=== PATIENT | female | born 1930 | race Hispanic/Latino ===

== ENCOUNTER 2016-10-19 15:08 | Inpatient (IN) | payer MEDICARE, OTHER ==
[~2016-10-19] VITALS: Ht 149.9 cm; Wt 76.2 kg
[~2016-10-19 15:08] MED LIST: AMLO-321 PO; CARV12.52 PO; LOSA1TAB69 PO
[2016-10-19 15:29] VITALS: BP 136/55; PULSE 67; RESP 20; O2SAT 92
[2016-10-19 16:14] VITALS: BP 128/59; PULSE 68; RESP 22; O2SAT 94
--- NOTE | 2016-10-19 16:23 | ED.REPORT ---
HPI-General Illness Date of Service October 19, 2016 ED Provider: Amish Rossi MD Patient is an 86 year old female with a history of CAD, malignant hypertension, hyperlipidemia, hypothyroidism, renal artery stenosis and diastolic heart failure who presents to the ED with a fever that began 2 days ago. Associated symptoms include weakness, non productive cough, confusion, decreased appetite and fatigue. Son reports recent stressors in addition to symptoms. He denies any recent head injury or headache. Nursing Notes Stated Complaint: FEVER/COUGH Chief Complaint: FLU/Cold Symptoms Nursing Notes Reviewed: Yes Allergies: Coded Allergies: No Known Allergies (Verified , 08/24/15) Scheduled Amlodipine/Atorvastatin 10-10 mg (Amlodipine/Atorvastatin 10-10 mg) 1 Each Tablet 1 TABLET PO BID Carvedilol (Carvedilol) 12.5 Mg Tablet 12.5 MG PO BID Losartan/HCTZ 50-12.5 mg (Losartan/HCTZ 50-12.5 mg) 1 Each Tablet 1 TABLET PO BID General Time Seen by MD: 15:54 Chief Complaint Fever Hx Obtained From: Patient Arrived By: Walk-in Sudden in Onset?: No Onset Occurred: 2 days ago Symptom Duration: Since onset Associated with: Reports: Cough, Fever, Weakness Pertinent Negative: Pt denies other symptoms Recent Healthcare: No recent doctor visit, No recent hospitalization Past Medical History Past Medical History 1.) Coronary Artery Disease 2.) Renal Artery Stenosis 3.) Malignant Hypertension 4.) Diastolic Heart Failure 5.) Hyperplipidemia 6.) Stenosis of the Inferior Mesenteric Artery 7.) Hypothyroidism 8.) Depression Past Surgical History Reports: Cholecystectomy Family History noncontributory Smoking History Unknown if Ever Smoker Social History Drug Use: Denies drug use Other Social History: Good social support, Lives alone, Local resident Ambulatory Status Independent Review of Systems Decreased appetite Full Review of Systems Constitutional: Reports: Chills, Fever, Weakness - generalized Respiratory: Reports: Non-productive cough Neurologic: Reports: Confusion Complete sys rev & neg: except as marked. Physical Exam Vital Signs Vital Signs Date Time Temp Pulse Resp B/P Pulse Ox O2 Delivery O2 Flow Rate FiO2 10/19/16 18:14 37.1 10/19/16 17:28 74 20 139/51 94 Nasal Cannula 2 10/19/16 16:14 36.9 68 22 128/59 94 Room Air 10/19/16 15:29 37.2 67 20 136/55 92 Room Air Initial VS: Reviewed Neck: Supple, Non-tender, Full range of motion Extremities: Vascular intact, Neuro intact, No swelling (No calf swelling) , No tenderness (No calf tenderness) Skin: Warm, Dry, No cyanosis Neurologic: Alert, Oriented, Nonfocal Psychiatric: Mood/affect normal, Behavior normal, Normal thought content General/Constitutional: Awake, Alert, No acute distress Head / Eyes: Atraumatic, Normocephalic, PERRL Respiratory / Chest: Atraumatic, No respiratory distress RESPIRATORY: Crackles in the left base of the lung Cardiovascular: Heart rate NL, Regular rhythm, Heart sounds NL, No gallop, No murmurs, No rubs, Peripheral circulation NL, Pulses = bilaterally Abdomen: Atraumatic, Soft, Non-tender, BS normoactive Interpretation & Diagnostics Lab Results Interpretation Result Diagram: 10/19/16 1650 10/19/16 1650 Test 10/19/16 16:21 10/19/16 16:50 10/19/16 17:15 Urine Color Yellow (YELLOW) Urine Appearance Clear (CLEAR,HAZY) Urine pH 6.5 (5.0-8.0) Urine Specific Blanchard 1.010 (1.003-1.035) Urine Protein Negativemg/dL (NEG,TRACE) Urine Glucose (UA) Negativemg/dL (NEGATIVE) Urine Ketones Negativemg/dL (NEGATIVE) Urine Occult Blood Negative (NEGATIVE) Urine Nitrite Negative (NEGATIVE) Urine Bilirubin Negative (NEGATIVE) Urine Urobilinogen 2.0mg/dL (NORMAL) Urine Leukocyte Esterase Negative (NEGATIVE) Urine RBC 0-2/hpf (0-2) Urine WBC 0-5/hpf (0-5) Urine Epithelial Cells Moderate/hpf (NONE-MOD) Urine Crystals None seen (NONE SEEN) Urine Bacteria Few/hpf (NONE-FEW) Urine Hyaline Casts None/lpf (NONE) Urine Granular Casts None seen (NONE SEEN) Urine Waxy Casts None seen (NONE SEEN) Urine Red Blood Cell Casts None seen (NONE SEEN) Urine White Blood Cell Casts None seen (NONE SEEN) Urine Mucus None seen (None Seen) Urine Trichomonas None seen (NONE SEEN) Urine Yeast None (NONE SEEN) Urinalysis Comment None Urine Culture Reflexed Not indicated White Blood Count 8.0th/mm3 (3.8-10.1) Red Blood Count 4.21mil/mm3 (3.90-5.20) Hemoglobin 11.8g/dL (12.0-15.6) Hematocrit 35.4% (35.0-46.0) Mean Corpuscular Volume 84.1fL (81-100) Mean Corpuscular Hemoglobin 28.0pg (27.0-35.0) Mean Corpuscular Hemoglobin Concent 33.3% (32.0-37.0) Red Cell Distribution Width 13.3% (12.3-15.4) Platelet Count 198bil/L (150-400) Neutrophils (%) (Auto) 70.8% (40-74) Lymphocytes (%) (Auto) 18.0% (14-46) Monocytes (%) (Auto) 9.2% (4-12) Eosinophils (%) (Auto) 1.6% (0-5) Basophils (%) (Auto) 0.2% (0-3) Sodium Level 138mEq/L (134-144) Potassium Level 3.5mEq/L (3.5-5.2) Chloride Level 97mEq/L (97-108) Carbon Dioxide Level 29mmol/L (18-29) Blood Urea Nitrogen 16mg/dL (8-27) Creatinine 0.72mg/dL (0.57-1.00) Estimat Glomerular Filtration Rate 110mL/min (>59) Glucose Level 125mg/dL (60-99) Calcium Level 9.5mg/dL (8.5-10.1) Magnesium Level 2.2mg/dL (1.6-2.6) Total Bilirubin 0.7mg/dL (0.0-1.2) Aspartate Amino Transf (AST/SGOT) 25U/L (0-50) Alanine Aminotransferase (ALT/SGPT) 20U/L (0-32) Alkaline Phosphatase 99U/L (25-165) Pro-B-Type Natriuretic Peptide 304.7pg/mL (0-738) Total Protein 7.2g/dL (6.4-8.4) Albumin 3.7g/dL (3.4-5.0) Procalcitonin 0.09ng/mL (0.00-0.08) Lactic Acid Level 0.7mmol/L (0.4-2.0) ECG Interpretation ECG Interpretation: Sinus rhythm at [address] elevation Borderline T wave-abnormalities in AVL Inferior Q waves When compared to 10/19/16- no change Time: 16:37 Interpreted by: ED physician X-Ray Chest Interpretation Chest Xray Interpretation: IMPRESSION: Focal opacity within the left costophrenic angle presumably pneumonia although recommend short interval radiographic followup after treatment to exclude mass lesion/neoplasm. If this persists, a noncontrast CT chest would be recommended. Diffuse interstitial disease. Dictated by: Jonas Acevedo M.D. on 10/19/2016 at 16:49 Interpretation / Wet Read by: Interpret - Radiologist Re-Eval/Medical Decision Med Decision/Clinical Course Patient is an 86 year old female with a history of CAD, malignant hypertension, hyperlipidemia, hypothyroidism, renal artery stenosis and diastolic heart failure who presents to the ED with a fever that began 2 days ago. Associated symptoms include weakness, non productive cough, confusion, decreased appetite and fatigue. Son reports recent stressors in addition to symptoms. He denies any recent head injury or headache. Here in the emergency department the patient is afebrile with stable vital signs and examination as above. Of note the patient has oxygen saturation in the 80s on room air improving to the high 90s on 2 L by nasal cannula. EKG Sinus rhythm at [address] elevation Borderline T wave-abnormalities in AVL Inferior Q waves When compared to 10/19/16- no change IMPRESSION: Focal opacity within the left costophrenic angle presumably pneumonia although recommend short interval radiographic followup after treatment to exclude mass lesion/neoplasm. If this persists, a noncontrast CT chest would be recommended. Diffuse interstitial disease. LABS CBC unremarkable - no leukocytosis CMP unremarkable Lactic acid = 0.7 UA - No sings of UTI Patient started on ceftriaxone and azithromycin for community-acquired pneumonia. Given patient's advanced age, comorbidities and hypoxia she will be admitted to the hospitalist service for further management. Report called and patient transferred in stable condition. Time of Eval: 18:21 Re-Evaluation/Progress Note: Son is informed of the plan to admit following X-ray results. All questions are addressed. He understands and agrees with the intended treatment plan to admit. Consultation : Referral / Consult Name: Ross Camacho MD Consulted With: Hospitalist Call Returned at: 19:09 Furnace Clerk: Will see patient, Agrees with eval, Agrees with plan, Accepts admit Counseled Regarding: Diagnosis, Lab results, Need for admission Discharge & Departure Primary Impression: Pneumonia Pneumonia type: due to unspecified organism Laterality: left Lung location : lower lobe of lung Qualified Code: J18.1 - Lobar pneumonia, unspecified organism Additional Impressions: Hypoxia Respiratory distress History of coronary artery disease Disposition: ADMITTED TO HOSPITAL Discharge Condition All VS Reviewed: Yes Condition: Stable Referrals: Mark Ramirez MD (PCP) Crit Care Except Billable Proc Time Spent: 75-104 minutes Services Performed: Patient management by me, Time spent at bedside, Reviewing test results, Reviewing imaging, Discussing patient care, Documentation in record, Time with fam/surrogate Scribe Attestation Portions of this note were transcribed by Carmina Hall. I, Dr. Rossi personally performed the history, physical exam and medical decision-making; I reviewed and confirmed the accuracy of the information in the transcribed note. Signed by: Horacio Montanez, 10/19/16 [id number]. copies to: Mark Ramirez MD, Beck O MD October 19, 2016 16:23 CARMINA HALL October 19, 2016 16:39
[2016-10-19 16:37] LABS: APPEARANCE,URINE CLEAR (CLEAR,HAZY); COLOR,URINE YELLOW (YELLOW); OCCULT BLOOD,URINE NEGATIVE (NEGATIVE); PH,URINE 6.5 (5.0-8.0)
--- NOTE | 2016-10-19 16:51 | DRSVH ---
PROCEDURE: X-RAY CHEST ONE VIEW, PORTABLE ([id number]) INDICATIONS: SHORT OF BREATH TECHNIQUE: One view of the chest was acquired. COMPARISON: [facility], CR, XR CHEST 1VW (PORTABLE), 08/24/2015, 11:12. FINDINGS: Surgical changes and devices: None. Lungs and pleura: No pleural effusions or pneumothorax. Diffuse interstitial opacities are present. Focal consolidation seen the left costophrenic angle. Mediastinum: Mediastinal contours appear normal. Heart size is normal. Bones and chest wall: No suspicious bony lesions. Overlying soft tissues appear unremarkable. Mult ilevel discogenic changes IMPRESSION: Focal opacity within the left costophrenic angle presumably pneumonia although recommend short interv al radiographic followup after treatment to exclude mass lesion/neoplasm. If this persists, a noncont rast CT chest would be recommended. Diffuse interstitial disease. Dictated by: Jonas Acevedo M.D. on 10/19/2016 at 16:49 Approved by: Jonas Acevedo M.D. on 10/19/2016 at 16:50
[2016-10-19 17:05] LABS: BASOPHILS % (AUTO) 0.2 % (0-3); EOSINOPHILS % (AUTO) 1.6 % (0-5); MONOCYTES % (AUTO) 9.2 % (4-12); Mean Corpuscular Volume 84.1 fL (81-100); NEUTROPHILS % (AUTO) 70.8 % (40-74); Platelet Count 198 bil/L (150-400)
[2016-10-19 17:28] VITALS: BP 139/51; PULSE 74; RESP 20; O2SAT 94
[2016-10-19 17:35] LABS: Magnesium 2.2 mg/dL (1.6-2.6)
[2016-10-19] MEDS ORDERED: Alum-Mag Hydrox-Simeth 30 mL Suspension PO PRN ×2 (18:30→19:35)
[2016-10-19] MEDS ORDERED: cefTRIAXone Inj 2,000 MG in Dextrose 5% Minibag Plus 50 ML IV ONE (18:30)
[2016-10-19] MEDS ORDERED: Ondansetron 2 mg/mL 2 mL Inj IVPUSH PRN (18:30)
[2016-10-19] MEDS ORDERED: Azithromycin Inj 500 MG in Dextrose 5% w/Vial Mate 250 ML IV ONE (18:30)
[2016-10-19] MEDS ORDERED: Polyethylene Glycol (PEG) 17 Gm Powder PO PRN (19:35)
[2016-10-19 20:49] VITALS: BP 145/69; PULSE 76; RESP 18; O2SAT 96
--- NOTE | 2016-10-19 21:13 | PCM.HPMED ---
Subjective Date of Service October 19, 2016 Primary Provider: Admitting Physician: Primary Care Physician: Mark Ramirez MD Attending Physician: Admit Status: From the Emergency Department, Remote Telemetry Chief Complaint: fever and cough History of Present Illness: Patient is a Venezuelan speaking 86 year old female with a history of CAD, malignant hypertension, hyperlipidemia, hypothyroidism, renal artery stenosis and diastolic heart failure who presents to the ED with a fever that began 2 days ago. Associated symptoms include generalized malaise, headache, non productive cough, confusion, decreased appetite and fatigue. Denies any sick contacts, or recent hospitalizations. CXR showed possible pneumonia. In the ED vitals temperature 37.2, pulse 67 respiratory 20 blood pressure 136/ 55 pulse ox 92% on room air. Labs WBC 8.0, glucose 125 otherwise normal. Lactic acid 0.7. UA negative ECC was no acute changes. Chest x-ray showed "Focal opacity within the left costophrenic angle presumably pneumonia although recommend short interval radiographic followup after treatment to exclude mass lesion/neoplasm. Diffuse interstitial disease." Patient admitted to the hospital for further treatment and management. PCP: Mark Ramirez MD Review of Systems: Constitutional: Chills, Fever, Weakness - generalized, headaches and lack of appetite Respiratory: Cough, Non-productive cough Neurologic: Mild Confusion Complete sys rev & neg: except as marked. A comprehensive review of systems has been conducted with the patient and found to be negative except what is mentioned as above or in the HPI. Allergies Coded Allergies: No Known Allergies (Verified , 08/24/15) Home Medications Amlodipine/Atorvastatin 10-10 mg (Amlodipine/Atorvastatin 10-10 mg) 1 Each Tablet 1 TABLET PO BID Carvedilol (Carvedilol) 12.5 Mg Tablet 12.5 MG PO BID Losartan/HCTZ 50-12.5 mg (Losartan/HCTZ 50-12.5 mg) 1 Each Tablet 1 TABLET PO BID PMH 1.) Coronary Artery Disease 2.) Renal Artery Stenosis 3.) Malignant Hypertension 4.) Diastolic Heart Failure 5.) Hyperplipidemia 6.) Stenosis of the Inferior Mesenteric Artery 7.) Hypothyroidism 8.) Depression . Surgical History Cholecystectomy Family History Patient not sure of any health issues with parents. Social History Hx Alcohol Use: No Hx Substance Use: No Hx Tobacco Use: No Smoking Status: Never Smoker Living Arrangement: Alone (but currently with son due to not feeling well, passed several years ago) Exam Vital Signs Vital Sign - Last Date Time Temp Pulse Resp B/P Pulse Ox O2 Delivery O2 Flow Rate FiO2 10/19/16 18:14 37.1 10/19/16 17:28 74 20 139/51 94 Nasal Cannula 2 Exam General/Constitutional: Awake, Alert, No acute distress HEENT: Atraumatic, Normocephalic, PERRL, sclerae anicteric, moist mucous membranes Neck: Supple, Non-tender, Full range of motion, no lymphadenopathy Respiratory / Chest: Bibasilar crackles, diffuse expiratory wheezes. No respiratory distress Cardiovascular: Heart rate NL, Regular rhythm, Heart sounds NL, No gallop, No murmurs, No rubs, radial and dorsal pedis pulses normal, equal and intact Abdomen: Atraumatic, Soft, Non-tender, BS normoactive Extremities: Vascular intact, Neuro intact, No edema or tenderness Skin: Warm, Dry, No cyanosis Neurologic: Alert, Oriented, Nonfocal Psychiatric: Mood/affect normal, Behavior normal, Normal thought content Lab and Diagnostics Result Diagram: 10/19/16 1650 10/19/16 1650 X-Rays, CTs and MRIs Chest Xray Interpretation: IMPRESSION: Focal opacity within the left costophrenic angle presumably pneumonia although recommend short interval radiographic followup after treatment to exclude mass lesion/neoplasm. If this persists, a noncontrast CT chest would be recommended. Diffuse interstitial disease. Dictated by: Jonas Acevedo M.D. on 10/19/2016 at 16:49 Interpretation / Wet Read by: Interpret - Radiologist 12-lead ECG ECG Interpretation: Sinus rhythm at [address] elevation Borderline T wave-abnormalities in AVL Inferior Q waves When compared to 10/19/16- no change Time: 16:37 Interpreted by: ED physician Assessment & Plan Patient is a Venezuelan speaking 86 year old female with a history of CAD, malignant hypertension, hyperlipidemia, hypothyroidism, renal artery stenosis and diastolic heart failure who presents to the ED with a fever that began 2 days ago. Associated symptoms include weakness, non productive cough, confusion , decreased appetite and fatigue. Diagnosed to have pneumonia and started on antibiotics. Community-acquired pneumonia this examination. Acute. - CXR showed "Focal opacity within the left costophrenic angle presumably pneumonia although recommend short interval radiographic followup after treatment to exclude mass lesion/neoplasm. - CURB 65 score of 3, severe risk group with 14% with 30-day mortality - started on ceftriaxone and azithromycin, to be continued - IVF - Viral PCR panel, sputum Cx, procalcitonin pending - Urine legionella and strep pneumo pending Chronic conditions: Coronary Artery Disease - on telemetry - Continue home dose carvedilol Malignant Hypertension secondary to renal artery stenosis - continue home medication; losartan/HCTZ, amlodipine/atorvastatin Diastolic Heart Failure - Strict I/Os with standing daily weights Hyperplipidemia - continue home medication atorvastatin Stenosis of the Inferior Mesenteric Artery Hypothyroidism - patient on medication for this Depression Acetaminophen-fever/headache/mild/moderate pain Antiemetics, as needed Bowel regimen, as needed. Patient status: Patient was admitted under inpatient status with expected length of stay greater than two midnights due to severity of presenting symptoms , risk of adverse event, and complexity of treatment plan. Pain Evaluation: Adequate Pain Control GI Prophylaxis: Not indicated VTE Prophylaxis: Sub-Q Heparin (Unfractionated) Resuscitation Status: CPR: Attempt Resuscitation Attending Statement The patient was seen and examined together with Dr. Roa on 10/19 and I agree with the history, exam and plan as outlined in the note above. copies to: Mark Ramirez MD, Fumiko O DO October 19, 2016 19:31 Ross Camacho MD October 20, 2016 04:23 Emi Roa DO October 19, 2016 19:31 Ross Camacho MD October 20, 2016 04:23
[2016-10-19] MEDS: 0.9% Sodium Chloride 1,000 ML IV SCH (22:04)
[2016-10-19] MEDS ORDERED: AMLODIPINE PO SCH (22:50)
[2016-10-19] MEDS ORDERED: ATORVASTATIN PO SCH (22:50)
[2016-10-19 22:59] VITALS: PULSE 61
[2016-10-20] VITALS (9 sets, daily range): BP systolic 100–130; BP diastolic 52–58; PULSE 60–69; RESP 14–20; O2SAT 93–99
[2016-10-20] MEDS: Heparin 5,000 Unit/mL Inj SUBQ SCH ×3 (00:44→16:45)
--- NOTE | 2016-10-20 02:01 | NUR ---
Arrival to unit Patient arrived to the floor at 2030 from the ED via gurney. Was able to scoot self over to hospital bed with assist. Patient denies pain, or SOB. Slight expiratory wheezes are heard. 3L O2 via NC maintains sats @ 95%. Patient was able to use BSC with 1 person assist well. NS is running at 100cc/hr with int. abx. Tele applied, and tech reports SR 61 with 1st degree AV block. Patient is on droplet precautions. Unable to complete med rec at this time. Family members are to bring in med list in the morning so drugs, and doses can be verified; night hospitalist notified and aware. Bed is in locked/low position and call light is within reach. Will continue to monitor and continue Q1 hour checks.
[2016-10-20] MEDS: 0.9% Sodium Chloride 1,000 ML IV SCH ×3 (05:31→23:29)
--- NOTE | 2016-10-20 06:38 | PCM.PNMED ---
Subjective Date of Service October 20, 2016 Subjective No acute events overnight, denies cp or worsening sob. cont on supplemental oxygen, appreciate nursing assisting in med rec today after family brings in medications Exam Vital Signs Vital Sign - Last Date Time Temp Pulse Resp B/P Pulse Ox O2 Delivery O2 Flow Rate FiO2 10/20/16 06:17 62 10/20/16 05:52 36.7 18 100/58 99 Nasal Cannula 3.00 Intake and Output 10/19/16 10/19/16 10/20/16 Cumulative From/Thru 15:00 23:00 07:00 10/19/16 15:29 - 10/20/16 06:09 Intake Total 1364 ml 1364 ml Output Total 300 ml 300 ml Balance 1064 ml 1064 ml Intake Oral 200 ml 200 ml IV Total 1164 ml 1164 ml Output Urine Total 300 ml 300 ml # Bowel Movements 1 1 Exam General/Constitutional: Awake, Alert, No acute distress HEENT: Atraumatic, Normocephalic, PERRL, sclerae anicteric, moist mucous membranes Neck: Supple, Non-tender, Full range of motion, no lymphadenopathy Respiratory / Chest: Bibasilar crackles, diffuse expiratory wheezes. No respiratory distress Cardiovascular: Heart rate NL, Regular rhythm, Heart sounds NL, No gallop, No murmurs, No rubs, radial and dorsal pedis pulses normal, equal and intact Abdomen: Atraumatic, Soft, Non-tender, BS normoactive Extremities: Vascular intact, Neuro intact, No edema or tenderness Skin: Warm, Dry, No cyanosis Neurologic: Alert, Oriented, Nonfocal Psychiatric: Mood/affect normal, Behavior normal, Normal thought content IVs and Medications Medications Reviewed: Medications were reviewed in detail Lab and Diagnostics Result Diagram: 10/19/16164910/19/161649 X-Rays, CTs and MRIs Chest Xray Interpretation: IMPRESSION: Focal opacity within the left costophrenic angle presumably pneumonia although recommend short interval radiographic followup after treatment to exclude mass lesion/neoplasm. If this persists, a noncontrast CT chest would be recommended. Diffuse interstitial disease. Dictated by: Jonas Acevedo M.D. on 10/19/2016 at 16:49 Interpretation / Wet Read by: Interpret - Radiologist 12-lead ECG ECG Interpretation: Sinus rhythm at [address] elevation Borderline T wave-abnormalities in AVL Inferior Q waves When compared to 10/19/16- no change Time: 16:37 Interpreted by: ED physician Assessment & Plan Vietnamese speaking 86 year old female with a history of CAD, malignant hypertension, hyperlipidemia, hypothyroidism, renal artery stenosis and diastolic heart failure who presents to the ED with a fever that began 2 days ago. Associated symptoms include weakness, non productive cough, confusion, decreased appetite and fatigue. Diagnosed to have pneumonia and started on antibiotics. Community-acquired pneumonia this examination. Acute. - CXR showed "Focal opacity within the left costophrenic angle presumably pneumonia although recommend short interval radiographic followup after treatment to exclude mass lesion/neoplasm. - CURB 65 score of 3, severe risk group with 14% with 30-day mortality - cont ceftriaxone and azithromycin, start: 10/19 - IVF, dc later today if PO intake adequate - Viral PCR panel, sputum Cx, procalcitonin pending - Urine legionella and strep pneumo pending Chronic conditions: Coronary Artery Disease - on telemetry - Continue home dose carvedilol Malignant Hypertension secondary to renal artery stenosis - continue home medication; losartan/HCTZ, amlodipine/atorvastatin Diastolic Heart Failure - Strict I/Os with standing daily weights Hyperplipidemia - continue home medication atorvastatin Stenosis of the Inferior Mesenteric Artery Hypothyroidism - patient on medication for this Depression Acetaminophen-fever/headache/mild/moderate pain Antiemetics, as needed Bowel regimen, as needed. Patient status: Patient was admitted under inpatient status with expected length of stay greater than two midnights due to severity of presenting symptoms , risk of adverse event, and complexity of treatment plan. Pain Evaluation: Adequate Pain Control GI Prophylaxis: Not indicated VTE Prophylaxis: Sub-Q Heparin (Unfractionated) VTE Mechanical Devices: Intermittant Pneumatic CD Resuscitation Status: CPR: Attempt Resuscitation Time spent 30 minutes spent with keri and Joseph Pardo DO October 20, 2016 06:38
[2016-10-20] MEDS ORDERED: HCTZ PO SCH (08:30)
[2016-10-20] MEDS ORDERED: LOSARTAN PO SCH (08:30)
[2016-10-20] MEDS ORDERED: AMLO10TA3 PO (08:54)
[2016-10-20] MEDS: Azithromycin Inj 500 MG in Dextrose 5% w/Vial Mate 250 ML IV SCH (09:01)
--- NOTE | 2016-10-20 09:05 | NUR ---
Med Rec Med Rec was completed with patient's home medication bottles brought in by son. GARCIA notified in person.
--- NOTE | 2016-10-20 10:42 | DRSVH ---
PROCEDURE: X-RAY CHEST ONE VIEW, PORTABLE ([id number]) INDICATIONS: PNEUMONIA TECHNIQUE: One view of the chest was acquired. COMPARISON: [facility], CR, XR CHEST 2VW, 05/15/2015, 1:31. [facility], CR, XR CHEST 1VW (PORTABLE), 10/19/2016, 16:22. FINDINGS: Surgical changes and devices: None. Lungs and pleura: No pleural effusions or pneumothorax. Lung lungs are low. Increasing opacificati on at the left lung base. Mediastinum: Mediastinal contours appear normal. Heart size is normal. Mitral annular calcificatio n present. Bones and chest wall: No suspicious bony lesions. Overlying soft tissues appear unremarkable. IMPRESSION: Increasing opacification at the left lung base consistent with worsening pneumonia or ate lectasis. Dictated by: Roger Vidal RRA Interpreted: Leticia Sarabia MD on 10/20/2016 at 10:41 Transcribed by: MYA on 10/20/2016 at 10:42 Approved by: Leticia Sarabia MD, PhD on 10/20/2016 at 11:40
[2016-10-20] MEDS: Albuterol-Ipratropium 3 mL Inhalation Solution NEB SCH ×3 (12:29→20:30)
--- NOTE | 2016-10-20 12:55 | NUR ---
Evaluation completed. Please go to "Notes" then click on "Assessments and Notes" (bottom left corner of screen). Then select appropriate discipline tab on top of screen.
--- NOTE | 2016-10-20 16:17 | NUR ---
Respiratory Patient started shift on 2L O2 NC and has since been titrated to 0.5L O2 NC with O2 Sats as high as 94%. Encouraging coughing and deep breathing while awake and Q4H Neb treatments were started. Patient was titrated off of O2 and onto room air while asleep and desated to 85%, so she was then put on 0.5L NC and her sats came up to 94%. Will continue to monitor oxygen requirements and try to ween patient off of O2 if appropriate due to her not being on home O2. Continuing with respiratory toileting.
[2016-10-20] MEDS ORDERED: cefTRIAXone Inj 2,000 MG in Dextrose 5% Minibag Plus 50 ML IV SCH (18:30)
[2016-10-21] MEDS: Heparin 5,000 Unit/mL Inj SUBQ SCH ×2 (00:17→08:56)
[2016-10-21 00:30] VITALS: PULSE 65; RESP 18; RESP 20; O2SAT 95; O2SAT 97
--- NOTE | 2016-10-21 01:40 | NUR ---
BP Med Held This evening patients BP was 128/58 with a heart rate in the high 50's low 60's (57-62). MD notified of BP medication Carvedilol held due to patients low heart rate. No new orders at this time. Will continue to monitor and continue Q1 hour checks.
[2016-10-21] MEDS: Albuterol-Ipratropium 3 mL Inhalation Solution NEB SCH ×4 (03:25→12:07)
[2016-10-21 05:16] VITALS: BP 139/61; PULSE 67; RESP 20; O2SAT 98
[2016-10-21 05:19] VITALS: PULSE 68; RESP 18; O2SAT 96
[2016-10-21 08:06] VITALS: PULSE 76; RESP 18; O2SAT 92
[2016-10-21] MEDS: Azithromycin Inj 500 MG in Dextrose 5% w/Vial Mate 250 ML IV SCH (08:58)
--- NOTE | 2016-10-21 10:22 | PCM.DIMED ---
Discharge Instructions Date of Service October 21, 2016 Dates of Hospitalization October 19, 2016 at 19:58 Discharge Diagnosis Discharge Diagnosis Pneumonia ASHD/CAD Hypertension CHF Weakness Diet Heart Healthy Activity No restrictions Call your provider Fever or Chills, Shortness of breath, Bleeding, Chest pain, Vomitting, Excessive diarrhea, Weakness (unilateral) Patient Instructions Follow-up Provider: Mark Ramirez MD Follow-up with PCP in: 1 week Aldo Power MD October 21, 2016 10:22
[2016-10-21] MEDS ORDERED: CEFU500T61 PO (10:25)
[2016-10-21] MEDS: 0.9% Sodium Chloride 1,000 ML IV SCH (11:31)
[2016-10-21 12:07] VITALS: PULSE 75; RESP 18; O2SAT 93
--- NOTE | 2016-10-21 13:16 | NUR ---
Discharge Patient discharged home with family via personal wheel chair. Assisted with getting dressed, IV DC'd catheter intact, denied pain. Patient and family educated on discharge information including new prescription for antibiotic, to cough and deep breath frequently, and to follow up with PCP in one week. Discharge packet given to patient and patient left with family in personal vehicle.
--- NOTE | 2016-10-21 15:57 | PCM.DC.MED ---
Discharge Summary Date of Service October 21, 2016 Dates of Hospitalization Date of Hospital Admission October 19, 2016 at 19:58 Date of Discharge: October 21, 2016 Providers: Admitting Physician: Ross Camacho MD Primary Care Physician: Mark Ramirez MD Attending Physician: Ross Camacho MD Diagnosis at Time of Discharge Diagnosis at Time of Discharge Pneumonia ASHD/CAD Hypertension CHF Weakness Procedures XRay, CTs & MRIs Chest Xray Interpretation: IMPRESSION: Focal opacity within the left costophrenic angle presumably pneumonia although recommend short interval radiographic followup after treatment to exclude mass lesion/neoplasm. If this persists, a noncontrast CT chest would be recommended. Diffuse interstitial disease. Dictated by: Jonas Acevedo M.D. on 10/19/2016 at 16:49 Interpretation / Wet Read by: Interpret - Radiologist ECG 12 Lead ECG Interpretation: Sinus rhythm at [address] elevation Borderline T wave-abnormalities in AVL Inferior Q waves When compared to 10/19/16- no change Time: 16:37 Interpreted by: ED physician Brief History Patient is a [place] speaking 86 year old female with a history of CAD, malignant hypertension, hyperlipidemia, hypothyroidism, renal artery stenosis and diastolic heart failure who presents to the ED with a fever that began 2 days ago. Associated symptoms include generalized malaise, headache, non productive cough, confusion, decreased appetite and fatigue. Denies any sick contacts, or recent hospitalizations. CXR showed possible pneumonia. In the ED vitals temperature 37.2, pulse 67 respiratory 20 blood pressure 136/ 55 pulse ox 92% on room air. Labs WBC 8.0, glucose 125 otherwise normal. Lactic acid 0.7. UA negative ECC was no acute changes. Chest x-ray showed "Focal opacity within the left costophrenic angle presumably pneumonia although recommend short interval radiographic followup after treatment to exclude mass lesion/neoplasm. Diffuse interstitial disease." Patient admitted to the hospital for further treatment and management. PCP: Mark Ramirez MD Hospital Course Community-acquired pneumonia. Acute. - Followup CXR is lagging her clinical improvement and resolved Hypoxia - CURB 65 score of 3, severe risk group with 14% with 30-day mortality - Treated inpatient with ceftriaxone and azithromycin, to be changed to oral Ceftin at discharge. - Hypoxia has resolved. 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 Hyperplipidemia - continue home medication atorvastatin Stenosis of the Inferior Mesenteric Artery Hypothyroidism - patient on medication for this Exam Vital Signs (Last) Date Time Temp Pulse Resp B/P Pulse Ox O2 Delivery O2 Flow Rate FiO2 10/21/16 08:06 76 18 92 Room Air 10/21/16 05:19 3.00 10/21/16 05:16 37.3 139/61 Exam Alert and conversant. She depends on her son(who lives one block away), who I was able to meet, and who is supportive/decisive. Heart: RRR without murmur Lungs: Fine basilar crackles bilaterally. Ext: No ankle edema High 90's on room air. Test 10/19/16 16:15 10/19/16 16:21 10/19/16 16:50 10/19/16 17:15 Urine Legionella pneumophilia Ag Negative (Negative) Urine Color Yellow (YELLOW) Urine Appearance Clear (CLEAR,HAZY) Urine pH 6.5 (5.0-8.0) Urine Specific [place] 1.010 (1.003-1.035) Urine Protein Negativemg/dL (NEG,TRACE) Urine Glucose (UA) Negativemg/dL (NEGATIVE) Urine Ketones Negativemg/dL (NEGATIVE) Urine Occult Blood Negative (NEGATIVE) Urine Nitrite Negative (NEGATIVE) Urine Bilirubin Negative (NEGATIVE) Urine Urobilinogen 2.0mg/dL (NORMAL) Urine Leukocyte Esterase Negative (NEGATIVE) Urine RBC 0-2/hpf (0-2) Urine WBC 0-5/hpf (0-5) Urine Epithelial Cells Moderate/hpf (NONE-MOD) Urine Crystals None seen (NONE SEEN) Urine Bacteria Few/hpf (NONE-FEW) Urine Hyaline Casts None/lpf (NONE) Urine Granular Casts None seen (NONE SEEN) Urine Waxy Casts None seen (NONE SEEN) Urine Red Blood Cell Casts None seen (NONE SEEN) Urine White Blood Cell Casts None seen (NONE SEEN) Urine Mucus None seen (None Seen) Urine Trichomonas None seen (NONE SEEN) Urine Yeast None (NONE SEEN) Urinalysis Comment None Urine Culture Reflexed Not indicated White Blood Count 8.0th/mm3 (3.8-10.1) Red Blood Count 4.21mil/mm3 (3.90-5.20) Hemoglobin 11.8g/dL (12.0-15.6) Hematocrit 35.4% (35.0-46.0) Mean Corpuscular Volume 84.1fL (81-100) Mean Corpuscular Hemoglobin 28.0pg (27.0-35.0) Mean Corpuscular Hemoglobin Concent 33.3% (32.0-37.0) Red Cell Distribution Width 13.3% (12.3-15.4) Platelet Count 198bil/L (150-400) Neutrophils (%) (Auto) 70.8% (40-74) Lymphocytes (%) (Auto) 18.0% (14-46) Monocytes (%) (Auto) 9.2% (4-12) Eosinophils (%) (Auto) 1.6% (0-5) Basophils (%) (Auto) 0.2% (0-3) Sodium Level 138mEq/L (134-144) Potassium Level 3.5mEq/L (3.5-5.2) Chloride Level 97mEq/L (97-108) Carbon Dioxide Level 29mmol/L (18-29) Blood Urea Nitrogen 16mg/dL (8-27) Creatinine 0.72mg/dL (0.57-1.00) Estimat Glomerular Filtration Rate 110mL/min (>59) Glucose Level 125mg/dL (60-99) Calcium Level 9.5mg/dL (8.5-10.1) Magnesium Level 2.2mg/dL (1.6-2.6) Total Bilirubin 0.7mg/dL (0.0-1.2) Aspartate Amino Transf (AST/SGOT) 25U/L (0-50) Alanine Aminotransferase (ALT/SGPT) 20U/L (0-32) Alkaline Phosphatase 99U/L (25-165) Pro-B-Type Natriuretic Peptide 304.7pg/mL (0-738) Total Protein 7.2g/dL (6.4-8.4) Albumin 3.7g/dL (3.4-5.0) Lactic Acid Level 0.7mmol/L (0.4-2.0) Test 10/20/16 04:42 Procalcitonin 0.09ng/mL (0.00-0.08) Discharge Medications Discharge Medications Amlodipine (Amlodipine) 10 Mg Tablet 10 MG PO DAILY (Reported) Carvedilol (Carvedilol) 12.5 Mg Tablet 12.5 MG PO BID (Reported) Cefuroxime Axetil (Cefuroxime) 500 Mg Tablet 500 MG PO BID Prescribed by: OMAYRA POWER MD Losartan/HCTZ 50-12.5 mg (Losartan/HCTZ 50-12.5 mg) 1 Each Tablet 1 TABLET PO BID (Reported) Followup Plan Discharge Diet: Heart Healthy Discharge Activity: No restrictions Follow-up Provider: Mark Ramirez MD Follow-up with PCP in: 1 week Time spent 32 minutes Aldo Power MD October 21, 2016 10:28
== END 2016-10-21 13:05 | disposition home or self-care (01) | DRG 194 ==
LOC: SED 15:08 → OSC 19:58
PROVIDERS: ADMIT Hospitalist; ATTEND Hospitalist
DX: J18.9 Pneumonia, unspecified organism (principal); I50.32 Chronic diastolic (congestive) heart failure; I25.10 Atherosclerotic heart disease of native coronary artery without angina pectoris; I10 Essential (primary) hypertension; E78.5 Hyperlipidemia, unspecified; E03.9 Hypothyroidism, unspecified; F32.9 Major depressive disorder, single episode, unspecified

== ENCOUNTER 2016-12-03 19:57 | Emergency (ER) | payer MEDICARE, OTHER ==
[~2016-12-03] VITALS: Ht 144.8 cm; Wt 75.0 kg
[~2016-12-03 19:57] MED LIST changes: -AMLO-321 PO; +AMLO10TA3 PO; +CEFU500T61 PO
[2016-12-03 20:13] VITALS: BP 147/64; PULSE 56; RESP 18; O2SAT 97
--- NOTE | 2016-12-03 22:05 | ED.REPORT ---
HPI-Hand Prob/Inj Date of Service Dec 03, 2016 ED Provider: Dr. Dominguez 86 y/o female with no pertinent hx presents to the ED complaining of right ring finger laceration just prior to arrival. The pt placed her hand between two rods in the wheelchair for support and cut her finger when she sat down. She reports throbbing pain in her ring finger. Nursing Notes Stated Complaint: CUT FINGER Chief Complaint: Laceration Nursing Notes Reviewed: Yes Allergies: Coded Allergies: No Known Allergies (Verified , 12/03/16) Scheduled Amlodipine (Amlodipine) 10 Mg Tablet 10 MG PO DAILY Carvedilol (Carvedilol) 12.5 Mg Tablet 12.5 MG PO BID Cefuroxime Axetil (Cefuroxime) 500 Mg Tablet 500 MG PO BID Losartan/HCTZ 50-12.5 mg (Losartan/HCTZ 50-12.5 mg) 1 Each Tablet 1 TABLET PO BID General Time Seen by Provider: 22:04 Chief Complaint Finger injury right Hx Obtained From: Patient, Daughter Arrived By: Wheelchair Onset Occurred: Just prior to arrival Symptom Duration: Since onset Progression Since Onset: Unchanged Caused by: Accidental Location: Right Hand: : Finger... (Ring) Quality: Throbbing Radiation: Does not radiate Severity: Current: Mild Severity: Maximum: Mild Recent Healthcare: Recent doctor visit Similar Sx Previous: No Past Medical History Past Medical History 1.) Coronary Artery Disease 2.) Renal Artery Stenosis 3.) Malignant Hypertension 4.) Diastolic Heart Failure 5.) Hyperplipidemia 6.) Stenosis of the Inferior Mesenteric Artery 7.) Hypothyroidism 8.) Depression Past Surgical History Reports: Cholecystectomy Family History noncontributory Smoking History Never Smoker Social History Drug Use: Denies drug use Other Social History: Good social support, Lives alone, Local resident Ambulatory Status Independent Review of Systems Reports: right ring finger laceration Complete sys rev & neg: except as marked. Physical Exam Initial Vital Signs Vital Signs (First) Date Time Temp Pulse Resp B/P Pulse Ox O2 Delivery O2 Flow Rate FiO2 12/03/16 20:13 36.9 56 18 147/64 97 Room Air Initial VS: Reviewed, Vital signs normal Head / Eyes: Atraumatic, Normocephalic Neck: Supple, Full range of motion Respiratory: Breath sounds normal, No respiratory distress Cardiovascular: Regular rate & rhythm Extremities: Vascular intact, Neuro intact, No swelling, No tenderness Skin: Warm, Dry, No cyanosis Neurologic: Alert, Oriented, Nonfocal Wrist / Hand: Atraumatic, Full range of motion, No swelling, Neurologic intact , Vascular intact 3.5cm J-shaped laceration over right ring finger involving paronychial area. General/Constitutional: Awake, Alert, No acute distress, Cooperative Procedures Laceration Management Laceration Management: 3.5cm laceration Time: 23:02 Procedure Performed by: ED physician Consent / Setup / Site Prep: Consent from patient, Time-out performed, Hand hygiene observed, Stand sterile technique Location of Wound: Right ring finger involving paronychial area Local Anesthesia: Lidocaine w epi 1% Digital Block: No Digit Involved: Ring finger right Wound Preparation: Shurclens Debridement: None Irrigation: 150 cc Foreign Body Explore / Removal: Explored for foreign body Repair Skin: Nylon (5O) # Sutures - Skin: 7 Closure Layers: 1 Suture Technique: Simple Post-Procedure / Complications: Antibiotic oint applied, Dressing applied, No complications, Condition improved, Tolerated procedure well, Patient stable Re-Eval/Medical Decision Med Decision/Clinical Course 86-year-old who caught her finger in the leg support in her wheelchair. She had a complex laceration was closed without difficulty. Source of Hx: Old records Re-Evaluation/Progress : Time of Eval: 23:05 Patient Status: Condition improved Re-Evaluation/Progress Note: Discussed diagnosis and plan to discharge. Pt understands and agrees with the plan. F/U instructions and RTER warning given. All questions addressed. Counseled Regarding: Diagnosis, Need for follow-up, When/why to return to ED Discharge & Departure Primary Impression: Finger laceration Encounter type: initial encounter Qualified Code: S61.219A - Laceration without foreign body of unspecified finger without damage to nail, initial encounter Disposition: Home Discharge Condition All VS Reviewed: Yes Condition: Stable Patient Instructions: Laceration (ED) Additional Instructions: Stitches out in 10 days. I follow up sooner if there is any evidence of infection. Okay to shower and wash hands, but do not soak it (no time, no bathtub, no scuba diving and no dishwashing). Referrals: Mark Ramirez MD (PCP) Scribe Attestation Portions of this note were transcribed by Benjie Rizzo. I, , personally performed the history, physical exam and medical decision- making;I reviewed and confirmed the accuracy of the information in the transcribed note. Signed by Horacio Reeves. 12/03/16 23:37 copies to: Mark Ramirez MD, Howard L MD Dec 03, 2016 22:04 Benjie Rizzo Dec 03, 2016 23:09
[2016-12-03 23:43] VITALS: BP 170/75; PULSE 60; RESP 18; O2SAT 95
== END 2016-12-03 23:44 | disposition home or self-care (01) ==
LOC: SED 19:57
DX: S61.214A Laceration without foreign body of right ring finger without damage to nail, initial encounter (principal); W23.1XXA Caught, crushed, jammed, or pinched between stationary objects, initial encounter; Y93.89 Activity, other specified; Y92.89 Other specified places as the place of occurrence of the external cause; Y99.8 Other external cause status; I11.0 Hypertensive heart disease with heart failure; I50.30 Unspecified diastolic (congestive) heart failure; I25.10 Atherosclerotic heart disease of native coronary artery without angina pectoris; E78.5 Hyperlipidemia, unspecified; E03.9 Hypothyroidism, unspecified; F32.9 Major depressive disorder, single episode, unspecified

== ENCOUNTER 2016-12-11 12:28 | Emergency (ER) | payer MEDICARE, OTHER ==
[2016-12-11 12:37] VITALS: BP 129/63; PULSE 73; RESP 14; O2SAT 93
[2016-12-11] MEDS ORDERED: CEPH500T PO (12:59)
--- NOTE | 2016-12-11 12:59 | ED.REPORT ---
HPI-General Illness Date of Service Dec 11, 2016 ED Provider: Maverick Caldwell PA-C 86-year-old female returns to the emergency Department for suture removal. Seen in this department 11 days ago after cutting her right ring finger on her wheelchair and had 7 sutures placed. Complains of moderate redness and pain at the suture site. Feels this is aggravated by catching the sutures on things. Denies fever, chills, malaise, abdominal pain, vomiting, sweating, tachycardia. Nursing Notes Stated Complaint: STITCHES REMOVED Chief Complaint: Staple/Suture Removal Nursing Notes Reviewed: Yes Allergies: Coded Allergies: No Known Allergies (Verified , 12/03/16) Scheduled Amlodipine (Amlodipine) 10 Mg Tablet 10 MG PO DAILY Carvedilol (Carvedilol) 12.5 Mg Tablet 12.5 MG PO BID Cefuroxime Axetil (Cefuroxime) 500 Mg Tablet 500 MG PO BID Cephalexin (Cephalexin) 500 Mg Tablet 500 MG PO QID Losartan/HCTZ 50-12.5 mg (Losartan/HCTZ 50-12.5 mg) 1 Each Tablet 1 TABLET PO BID General Time Seen by MD: 12:43 Chief Complaint Other (suture removal) Past Medical History Past Medical History 1.) Coronary Artery Disease 2.) Renal Artery Stenosis 3.) Malignant Hypertension 4.) Diastolic Heart Failure 5.) Hyperplipidemia 6.) Stenosis of the Inferior Mesenteric Artery 7.) Hypothyroidism 8.) Depression Past Surgical History Reports: Cholecystectomy Family History noncontributory Smoking History Never Smoker Social History Drug Use: Denies drug use Other Social History: Good social support, Lives alone, Local resident Ambulatory Status Independent Review of Systems Negative unless stated otherwise in history of present illness Physical Exam General: Well appearing, pleasant, elderly female seated comfortably in her wheelchair, no acute distress. Right Ring finger: Healing complex laceration distal phalanx adjacent to the nail bed. Moderate redness and tenderness locally. Negative purulent discharge. Suture sites are clean and dry, No indication of dehiscence. Head: Atraumatic, normocephalic. Eyes: No scleral icterus or injection. No discharge. Vision grossly intact. ENT: Voice clear, hearing grossly intact. Respiratory: No respiratory distress, no increased work of breathing. Speaks in complete sentences. Skin: Warm and dry. Neurological: Grossly nonfocal. Psychological: alert and oriented. Speech appropriate, linear and logical. Behavior appropriate. Vital Signs Vital Signs Date Time Temp Pulse Resp B/P Pulse Ox O2 Delivery O2 Flow Rate FiO2 12/11/16 13:41 82 18 12/11/16 12:37 37.0 73 14 129/63 93 Room Air Normal Re-Eval/Medical Decision Med Decision/Clinical Course 86-year-old female returns emergency Department for suture removal, complaining of [id number] pain and redness at the suture site. Denies fever or other indications of systemic illness. On physical examination the patient appears generally well, mild redness and swelling at the suture site with associated mild tenderness. Negative purulent discharge. Otherwise feeling well. I believe there is a possibility of an early infection, and that this justifies use of Keflex 500 mg to be taken 4 times a day for 5 days. Sutures to be removed today. Advised regarding primary care follow-up, provided emergency return precautions. Patient verbalized understanding of, and consent to, the plan. Discharge & Departure Primary Impression: Infected finger laceration Encounter type: subsequent encounter Qualified Code: S61.219D - Laceration without foreign body of unspecified finger without damage to nail, subsequent encounter Disposition: Home Discharge Condition All VS Reviewed: Yes Condition: Stable Additional Instructions: Evaluation in the emergency department for possible infected finger sutures includes interview and physical examination. He suggests that there is the early stage of an infection going on here. We have accommodation removing the sutures and starting antibiotics should cause this to resolve quickly. We have removed the sutures from the finger and I have written a prescription for Keflex 500 mg to be taken 4 times a day for the next 5 days. Follow up with your primary care provider in about 5 days to be sure this is resolving as expected. Return to emergency department for any new or worsening symptoms including increasing redness, pain, swelling over the appearance of pus. Referrals: Mark Ramirez MD (PCP) EDSupervising Provider for APC: Ramy Izaguirre DO copies to: Mark Ramirez MD, Seth PA-C Dec 11, 2016 12:58
[2016-12-11 13:41] VITALS: PULSE 82; RESP 18
== END 2016-12-11 13:46 | disposition home or self-care (01) ==
LOC: SED 12:28
DX: S61.214D Laceration without foreign body of right ring finger without damage to nail, subsequent encounter (principal); W22.8XXD Striking against or struck by other objects, subsequent encounter; Y93.89 Activity, other specified; Y92.9 Unspecified place or not applicable; Y99.8 Other external cause status; I25.10 Atherosclerotic heart disease of native coronary artery without angina pectoris; E78.5 Hyperlipidemia, unspecified; I11.0 Hypertensive heart disease with heart failure; I50.30 Unspecified diastolic (congestive) heart failure; E03.9 Hypothyroidism, unspecified; F32.9 Major depressive disorder, single episode, unspecified